=== PATIENT | male | born 1935 | race Hispanic/Latino ===

== ENCOUNTER 2017-10-29 13:47 | Emergency (ER) | payer OTHER, MEDICARE ==
[~2017-10-29 13:47] MED LIST: ACET-2160 PO; ATOR10 PO; AZIT500T4 PO; BISA10SU8 RC; FAMO20TA8 PO; FURO20TA4 PO; ISOS30TA6 PO; MEMA5TAB15 PO; METO25TA6 PO; OSEL75 PO; RISP0.5T19 PO; TAMS0.4C32 PO; TRAM50TA4 PO
[2017-10-29 14:38] LABS: APPEARANCE,URINE Clear (CLEAR); BILIRUBIN,URINE Negative (NEGATIVE); COLOR,URINE Yellow (YELLOW); GLUCOSE, URINE (UA) Negative (NEGATIVE); KETONES,URINE Negative (NEGATIVE); LEUKOCYTE ESTERASE ,URINE Small (NEGATIVE); NITRATE,URINE Negative (NEGATIVE); OCCULT BLOOD,URINE Negative (NEGATIVE); PROTEIN,URINE Negative (NEGATIVE)
[2017-10-29 14:53] LABS: BACTERIA,URINE Rare /HPF (None Seen); RBC,URINE 0-1 /HPF (0-1)
[2017-10-29 15:02] LABS: BASOPHILS % (AUTO) 0.4 % (0.0-5.0); EOSINOPHILS % (AUTO) 1.2 % (0.0-8.0); HEMATOCRIT 39.3 % (42-54); LYMPHOCYTES % (AUTO) 26.4 % (21.0-51.0); MEAN CORPUSCULAR HEMOGLOBIN 33.6 pg (27.0-33.0); MEAN CORPUSCULAR HGB CONC 34.8 g/dL (32.0-36.0); MEAN CORPUSCULAR VOLUME 96.8 fL (79-99); MONOCYTES % (AUTO) 6.8 % (3.0-13.0); NEUTROPHILS % (AUTO) 65.2 % (40.0-77.0); PLATELET COUNT (AUTO) 284 K/uL (130-400); RED BLOOD CELL COUNT(AUTO) 4.06 MIL/uL (4.50-6.20); RED CELL DISTRIBUTION WIDTH 13.3 % (11.0-15.5); WHITE BLOOD COUNT (AUTO) 8.3 K/uL (4.8-10.8)
[2017-10-29 15:16] LABS: POTASSIUM 3.8 mmol/L (3.5-5.1)
[2017-10-29 15:19] LABS: ALBUMIN 3.1 g/dL (3.5-5.0); BILIRUBIN,TOTAL 0.2 mg/dL (0.2-1.0); TOTAL PROTEIN, SERUM 6.7 g/dL (6.0-8.3)
[2017-10-29] MEDS ORDERED: IOPAMIDOL-370 75 ML VIAL IV ONE (16:02)
[2017-10-29] MEDS ORDERED: SODIUM CHLORIDE 0.9% 1000ML 1,000 ML IV ONE (16:03)
[2017-10-29] MEDS ORDERED: MORPHINE SULFATE 4 MG/1ML SYG ONE (16:03)
[2017-10-29] MEDS ORDERED: ONDANSETRON HCL 4 MG/2 ML VIAL ONE (16:03)
[2017-10-29] MEDS ORDERED: LEVOFLOXACIN 500 MG/D5W 100 ML 100 ML ONE (18:50)
== END 2017-10-29 19:35 | disposition home or self-care (01) ==
LOC: EDH 13:47
DX: N39.0 Urinary tract infection, site not specified (principal); R10.2 Pelvic and perineal pain; G30.9 Alzheimer's disease, unspecified; E11.9 Type 2 diabetes mellitus without complications; E78.5 Hyperlipidemia, unspecified; Z86.73 Personal history of transient ischemic attack (TIA), and cerebral infarction without residual deficits
CPT/HCPCS: 36415; 74177; 80053; 81001; 83690; 84484; 85025; 87088; 93005; 96361; 96365; 96375; 99285; J1956; J2270; J2405; J7030; Q9967

== ENCOUNTER 2017-11-12 19:48 | Observation (INO) | payer OTHER, MEDICARE ==
[~2017-11-12] VITALS: Ht 182.9 cm; Wt 83.3 kg
[2017-11-12 20:29] LABS: HEMATOCRIT 40.7 % (42-54); MEAN CORPUSCULAR HEMOGLOBIN 32.9 pg (27.0-33.0); MEAN CORPUSCULAR HGB CONC 34.2 g/dL (32.0-36.0); MEAN CORPUSCULAR VOLUME 96.2 fL (79-99); PLATELET COUNT (AUTO) 224 K/uL (130-400); RED BLOOD CELL COUNT(AUTO) 4.23 MIL/uL (4.50-6.20); RED CELL DISTRIBUTION WIDTH 13.7 % (11.0-15.5); WHITE BLOOD COUNT (AUTO) 11.7 K/uL (4.8-10.8)
[2017-11-12 20:37] LABS: CARBON DIOXIDE 25 mmol/L (21-32); CHLORIDE 105 mmol/L (101-111); CREATININE 1.2 mg/dL (0.5-1.5); GLOMERULAR FILTR. RATE CALC 61 mL/min (>60); GLUCOSE,RANDOM 125 mg/dL (70-105); POTASSIUM 3.7 mmol/L (3.5-5.1); SODIUM SERUM 140 mmol/L (136-145); UREA NITROGEN, BLOOD 19 mg/dL (7-18)
[2017-11-12 20:41] LABS: INR 1.04 (0.85-1.15); PARTIAL THROMBOPLASTIN TIME 27.3 SEC (26.3-35.5); PROTHROMBIN TIME 10.9 SEC (9.6-11.6)
[2017-11-12 20:51] LABS: ALANINE AMINOTRANSFERASE 32 U/L (12-78); ALBUMIN 3.2 g/dL (3.5-5.0); ASPARTATE AMINOTRANSFERASE 28 U/L (10-37); BILIRUBIN,TOTAL 0.5 mg/dL (0.2-1.0); CREATINE KINASE, TOTAL 170 U/L (21-232); MYOGLOBIN 341 ng/mL (10-92); TOTAL PROTEIN, SERUM 6.8 g/dL (6.0-8.3); TROPONIN I < 0.04 ng/mL (0.00-0.06)
[2017-11-12] MEDS ORDERED: ACETAMINOPHEN 325 MG TAB ONE (21:04)
[2017-11-12] MEDS ORDERED: LEVOFLOXACIN 750 MG/D5W 150 ML 150 ML ONE (21:39)
[2017-11-12 21:44] LABS: BAND NEUTROPHILS % (MANUAL) 7 % (0-2); BASOPHILS % (MANUAL) 1 % (0-2); LYMPHOCYTES % (MANUAL) 8 % (22-44); MONOCYTES % (MANUAL) 1 % (2-9); REACTIVE LYMPHOCYTES 1 % (0-0); SEGMENTED NEUTROPHILS % 82 % (40-70)
[2017-11-12 21:45] LABS: MAN.DIFF COMMENT-IMPRESSION MANUAL DIFFERENTIAL
[2017-11-12 21:52] LABS: APPEARANCE,URINE CLOUDY (CLEAR); BILIRUBIN,URINE NEGATIVE (NEGATIVE); COLOR,URINE YELLOW (YELLOW); GLUCOSE, URINE (UA) NEGATIVE (NEGATIVE); KETONES,URINE NEGATIVE (NEGATIVE); LEUKOCYTE ESTERASE ,URINE MODERATE (NEGATIVE); NITRATE,URINE POSITIVE (NEGATIVE); OCCULT BLOOD,URINE MODERATE (NEGATIVE); PROTEIN,URINE 30 (NEGATIVE)
[2017-11-12 21:58] LABS: BACTERIA,URINE Many /HPF (None Seen); WBC,URINE >100 /HPF (0-1)
[2017-11-13] MEDS ORDERED: SODIUM CHLORIDE 0.9% 1000ML 1,000 ML IV ONE (03:21)
[2017-11-13] MEDS ORDERED: LORAZEPAM 2 MG/ML 1 ML VIAL ONE (03:35)
[2017-11-13] MEDS ORDERED: ACETAMINOPHEN 325 MG TAB PO PRN (17:30)
[2017-11-13] MEDS ORDERED: TIOT4MIS3 IH (17:37)
[2017-11-13] MEDS ORDERED: TRAZ-144 PO (17:39)
[2017-11-13] MEDS ORDERED: METOPROLOL TARTRATE 25 MG TAB ONE (21:11)
[2017-11-13] MEDS ORDERED: FAMOTIDINE 20MG TAB 20 MG TAB ONE (21:12)
[2017-11-13] MEDS ORDERED: LEVOFLOXACIN 500 MG/D5W 100 ML 100 ML ONE (23:15)
[2017-11-14] VITALS (7 sets, daily range): BP systolic 96–138; BP diastolic 50–70
[2017-11-14] MEDS ORDERED: ACETAMINOPHEN 325 MG TAB PO PRN ×2 (00:30)
[2017-11-14] MEDS ORDERED: CLONIDINE HCL 0.1 MG TABLET PO PRN (00:30)
[2017-11-14] MEDS ORDERED: GLUCAGON 1MG KIT 1 MG ML IM PRN (00:30)
[2017-11-14] MEDS ORDERED: NITROGLYCERIN 0.4 MG SL TAB SL PRN (00:30)
[2017-11-14] MEDS ORDERED: POTASSIUM CHLORIDE 10% ELIXIR 20 MEQ/15 ML UDCUP PO PRN (00:30)
[2017-11-14] MEDS ORDERED: LACTULOSE 20 GM/30 ML UDCUP PO PRN (00:30)
[2017-11-14] MEDS ORDERED: IPRATROPIUM/ALBUTEROL SULFATE 3 ML SOLUTION IH PRN (00:30)
[2017-11-14] MEDS ORDERED: POTASSIUM CHLORIDE 20 MEQ ERTAB PO PRN (00:30)
[2017-11-14] MEDS ORDERED: SODIUM CHLORIDE 0.9% 10 ML VIAL IVP SCH (00:30)
[2017-11-14] MEDS ORDERED: GUAIFENESIN-DM 200/20 MG 10 ML PO PRN (00:30)
[2017-11-14] MEDS ORDERED: DEXTROSE 50%-WATER 50 ML DISP.SYRIN IV PRN (00:30)
[2017-11-14] MEDS: SODIUM CHLORIDE 0.9% 1000ML 1,000 ML IV SCH ×2 (00:45→14:13)
[2017-11-14] MEDS: METOPROLOL TARTRATE 25 MG TAB PO SCH ×3 (01:00→22:25)
[2017-11-14] MEDS: RISPERIDONE 0.5 MG TABLET PO SCH ×2 (01:00→22:25)
[2017-11-14] MEDS: ATORVASTATIN CALCIUM 10 MG TABLET PO SCH ×2 (01:00→22:25)
[2017-11-14] MEDS: FAMOTIDINE 20MG TAB 20 MG TAB PO SCH ×3 (01:00→22:25)
[2017-11-14] MEDS: LORAZEPAM 2 MG/ML 1 ML VIAL IVP PRN ×2 (01:38→22:51)
[2017-11-14] MEDS: CEFTRIAXONE SODIUM 1 GM IVP SCH (02:00)
[2017-11-14 04:28] LABS: HEMATOCRIT 37.1 % (42-54); MEAN CORPUSCULAR HEMOGLOBIN 33.5 pg (27.0-33.0); MEAN CORPUSCULAR VOLUME 95.7 fL (79-99); PLATELET COUNT (AUTO) 158 K/uL (130-400); RED BLOOD CELL COUNT(AUTO) 3.88 MIL/uL (4.50-6.20); RED CELL DISTRIBUTION WIDTH 14.1 % (11.0-15.5); WHITE BLOOD COUNT (AUTO) 14.1 K/uL (4.8-10.8)
[2017-11-14 04:31] LABS: CREATININE 1.1 mg/dL (0.5-1.5); POTASSIUM 3.2 mmol/L (3.5-5.1)
[2017-11-14 04:58] LABS: BAND NEUTROPHILS % (MANUAL) 10 % (0-2); LYMPHOCYTES % (MANUAL) 17 % (22-44); MAN.DIFF COMMENT-IMPRESSION MANUAL DIFFERENTIAL; PLATELET MORPHOLOGY COMMENT ADEQUATE; SEGMENTED NEUTROPHILS % 73 % (40-70)
[2017-11-14] MEDS: INSULIN R NPO SS1 SQ SCH ×3 (06:00→16:31)
[2017-11-14] MEDS: INSULIN R PO SSI SQ SCH ×4 (06:20→21:00)
[2017-11-14] MEDS: IPRATROPIUM/ALBUTEROL SULFATE 3 ML SOLUTION IH SCH ×3 (06:21→19:15)
[2017-11-14] MEDS: POTASSIUM CHLORIDE 20MEQ/100ML 100 ML IV PRN ×2 (06:58→14:16)
[2017-11-14] MEDS: TAMSULOSIN HCL 0.4 MG CAP.ER.24H PO SCH (12:05)
[2017-11-14] MEDS: FUROSEMIDE 20 MG TABLET PO SCH (12:05)
[2017-11-14] MEDS: MEMANTINE HCL 5 MG TABLET PO SCH (12:06)
[2017-11-14] MEDS: ISOSORBIDE MONO 30MG TAB SR PO SCH (12:06)
[2017-11-15 03:52] VITALS: BP 121/70
[2017-11-15] MEDS: SODIUM CHLORIDE 0.9% 1000ML 1,000 ML IV SCH (04:33)
[2017-11-15] MEDS: INSULIN R NPO SS1 SQ SCH ×3 (04:33→12:00)
[2017-11-15] MEDS: IPRATROPIUM/ALBUTEROL SULFATE 3 ML SOLUTION IH SCH ×3 (06:31→11:08)
[2017-11-15] MEDS: INSULIN R PO SSI SQ SCH ×2 (06:32→11:30)
[2017-11-15 07:00] VITALS: BP 152/70
[2017-11-15] MEDS ORDERED: ERTAPENEM SODIUM 1 GM/VIAL IV SCH (08:45)
[2017-11-15] MEDS ORDERED: ERTAPENEM SODIUM 0.5 GM in SODIUM CHLORIDE 0.9% 50 ML IV SCH (08:45)
[2017-11-15] MEDS ORDERED: MEROPENEM 500 MG VIAL IVP SCH (09:00)
[2017-11-15] MEDS: FUROSEMIDE 20 MG TABLET PO SCH (09:47)
[2017-11-15] MEDS: MEMANTINE HCL 5 MG TABLET PO SCH (09:47)
[2017-11-15] MEDS: METOPROLOL TARTRATE 25 MG TAB PO SCH (09:47)
[2017-11-15] MEDS: FAMOTIDINE 20MG TAB 20 MG TAB PO SCH (09:47)
[2017-11-15] MEDS: TAMSULOSIN HCL 0.4 MG CAP.ER.24H PO SCH (09:48)
[2017-11-15] MEDS: ISOSORBIDE MONO 30MG TAB SR PO SCH (09:48)
[2017-11-15 11:00] VITALS: BP 126/65
== END 2017-11-15 16:17 ==
LOC: EDH 19:48 → EDHIP 11-13 00:18 → INTOOBSV 11-13 00:18 → 2AH 11-13 23:53
PROVIDERS: ADMIT Family Medicine; ATTEND Family Medicine
DX: A41.9 Sepsis, unspecified organism (principal); R65.21 Severe sepsis with septic shock; N39.0 Urinary tract infection, site not specified; E86.0 Dehydration; G30.9 Alzheimer's disease, unspecified; I63.9 Cerebral infarction, unspecified; I10 Essential (primary) hypertension; E78.5 Hyperlipidemia, unspecified; E11.9 Type 2 diabetes mellitus without complications; N40.1 Benign prostatic hyperplasia with lower urinary tract symptoms; Z79.899 Other long term (current) drug therapy; F02.80 Dementia in other diseases classified elsewhere, unspecified severity, without behavioral disturbance, psychotic disturbance, mood disturbance, and anxiety; Z86.73 Personal history of transient ischemic attack (TIA), and cerebral infarction without residual deficits
CPT/HCPCS: 36415 ×2; 70450; 71045; 80048; 80053; 81001; 82550; 82553; 82948 ×7; 83605 ×2; 83874; 84484; 85025 ×2; 85610; 85730; 87040; 87088; 87186; 93005; 94640 ×6; 94664; 96361 ×2; 96374; 96375; 96376; 97161; 99291; A4218 ×2; G0378 ×64; G8978; G8979; G8981; G8982; J1956 ×2; J2060 ×3; J2185; J3480 ×2; J7030 ×2; J0696; J1335

== ENCOUNTER 2018-01-30 08:01 | Inpatient (IN) | payer OTHER, MEDICARE ==
[~2018-01-30] VITALS: Ht 182.9 cm; Wt 77.1 kg
[~2018-01-30 08:01] MED LIST changes: +TIOT4MIS3 IH; +TRAZ-185 PO
[2018-01-30] MEDS ORDERED: CEFTRIAXONE SODIUM 1 GM ONE (08:15)
[2018-01-30] MEDS ORDERED: SODIUM CHLORIDE 0.9% 1000ML 2,000 ML IV ONE (08:15)
[2018-01-30 08:18] LABS: BASOPHILS % (AUTO) 0.2 % (0.0-5.0); EOSINOPHILS % (AUTO) 0.1 % (0.0-8.0); HEMATOCRIT 40.9 % (42-54); MEAN CORPUSCULAR HEMOGLOBIN 33.2 pg (27.0-33.0); MEAN CORPUSCULAR HGB CONC 34.9 g/dL (32.0-36.0); MEAN CORPUSCULAR VOLUME 95.2 fL (79-99); MONOCYTES % (AUTO) 5.9 % (3.0-13.0); NEUTROPHILS % (AUTO) 87.8 % (40.0-77.0); PLATELET COUNT (AUTO) 199 K/uL (130-400); RED BLOOD CELL COUNT(AUTO) 4.29 MIL/uL (4.50-6.20); RED CELL DISTRIBUTION WIDTH 14.2 % (11.0-15.5); WHITE BLOOD COUNT (AUTO) 14.1 K/uL (4.8-10.8)
[2018-01-30 08:25] LABS: CARBON DIOXIDE 23 mmol/L (21-32); CHLORIDE 106 mmol/L (101-111); CREATININE 1.4 mg/dL (0.5-1.5); GLOMERULAR FILTR. RATE CALC 51 mL/min (>60); GLUCOSE,RANDOM 163 mg/dL (70-105); POTASSIUM 3.4 mmol/L (3.5-5.1); SODIUM SERUM 141 mmol/L (136-145); UREA NITROGEN, BLOOD 20 mg/dL (7-18)
[2018-01-30 08:32] LABS: INR 1.05 (0.85-1.15); PARTIAL THROMBOPLASTIN TIME 30.7 SEC (26.3-35.5)
[2018-01-30 08:46] LABS: APPEARANCE,URINE Turbid (CLEAR); BILIRUBIN,URINE Negative (NEGATIVE); COLOR,URINE Yellow (YELLOW); GLUCOSE, URINE (UA) Negative (NEGATIVE); KETONES,URINE Negative (NEGATIVE); LEUKOCYTE ESTERASE ,URINE Large (NEGATIVE); NITRATE,URINE Positive (NEGATIVE); OCCULT BLOOD,URINE Large (NEGATIVE); PROTEIN,URINE POS 2+ (NEGATIVE); UROBILINOGEN,URINE 0.2 mg/dL (0.2-1.0)
[2018-01-30 08:52] LABS: ALANINE AMINOTRANSFERASE 18 U/L (12-78); ALBUMIN 3.7 g/dL (3.5-5.0); ASPARTATE AMINOTRANSFERASE 24 U/L (10-37); BILIRUBIN,TOTAL 1.2 mg/dL (0.2-1.0); CREATINE KINASE MB 6.6 ng/mL (0.5-3.6); MYOGLOBIN 1926 ng/mL (10-92); TOTAL PROTEIN, SERUM 7.7 g/dL (6.0-8.3); TROPONIN I < 0.04 ng/mL (0.00-0.06)
[2018-01-30 08:56] LABS: CREATINE KINASE, TOTAL 677 U/L (21-232)
[2018-01-30 09:12] LABS: BACTERIA,URINE Rare /HPF (None Seen); RBC,URINE 0-1 /HPF (0-1); WBC,URINE TNTC /HPF (0-1)
[2018-01-30 09:14] LABS: RENAL EPITHELIAL CELLS,URINE Few /HPF (None Seen)
[2018-01-30] MEDS ORDERED: POTASSIUM BICARB/CIT AC 25 MEQ TABLET.EFF ONE (09:20)
[2018-01-30] MEDS ORDERED: SODIUM CHLORIDE 0.9% 500ML 500 ML IV ONE (10:17)
[2018-01-30] MEDS ORDERED: LACTULOSE 20 GM/30 ML UDCUP PO PRN (10:45)
[2018-01-30] MEDS ORDERED: MAG HYDROX/AL HYDROX/SIMETH ES 30 ML SUSP UDCUP PO PRN (10:45)
[2018-01-30] MEDS ORDERED: ONDANSETRON HCL 4 MG/2 ML VIAL IV PRN (10:45)
[2018-01-30] MEDS ORDERED: ACETAMINOPHEN 325 MG TAB PO PRN (10:45)
[2018-01-30] MEDS ORDERED: MORPHINE SULFATE 2 MG/ML 1ML SYG IV PRN (10:45)
[2018-01-30] MEDS ORDERED: HYDRALAZINE HCL 20 MG/ML VIAL IV PRN (10:45)
[2018-01-30] MEDS ORDERED: LIDOCAINE HCL-MPF 1% 2ML VIAL IVP PRN (10:45)
[2018-01-30] MEDS ORDERED: MORPHINE SULFATE 4 MG/1ML SYG IV PRN (10:45)
[2018-01-30] MEDS ORDERED: POTASSIUM CHLORIDE 20 MEQ ERTAB PO PRN (10:45)
[2018-01-30] MEDS ORDERED: NITROGLYCERIN 0.4 MG SL TAB SL PRN (10:45)
[2018-01-30] MEDS ORDERED: POTASSIUM CHLORIDE 20MEQ/100ML 100 ML IV PRN (10:45)
[2018-01-30] MEDS ORDERED: MAGNESIUM 2GM PREMIX 50ML 50 ML IV SCH (10:45)
[2018-01-30] MEDS ORDERED: MEROPENEM 500MG+NS 50ML 50 ML IV SCH (10:45)
[2018-01-30] MEDS ORDERED: ACETAMINOPHEN-CODEINE 300/30MG TAB PO PRN ×2 (10:45)
[2018-01-30 11:30] VITALS: BP 117/62
[2018-01-30] MEDS: INSULIN HUMULIN R 100 UNIT/ML 3ML SQ SCH ×3 (11:30→20:50)
[2018-01-30] MEDS: SODIUM CHLORIDE 0.9% 1000ML 1,000 ML IV SCH (12:47)
[2018-01-30] MEDS: MEROPENEM 500 MG VIAL IVP SCH ×2 (12:47→20:42)
[2018-01-30] MEDS ORDERED: DONE5TAB33 PO (13:23)
[2018-01-30] MEDS ORDERED: RISP1TAB89 PO (13:23)
[2018-01-30] MEDS ORDERED: BISA5TAB12 PO (13:23)
[2018-01-30] MEDS: GUAIFENESIN-DM 200/20 MG 10 ML PO PRN (13:28)
[2018-01-30] MEDS ORDERED: BISACODYL 5 MG TABLET.DR PO PRN (13:30)
[2018-01-30] MEDS: HALOPERIDOL LACTATE 5 MG/ML VIAL IV PRN (13:32)
[2018-01-30 15:55] VITALS: BP 176/67
[2018-01-30] MEDS: ACETAMINOPHEN 325 MG TAB PO PRN (16:07)
[2018-01-30] MEDS: DONEPEZIL HCL 5 MG TAB PO SCH (16:07)
[2018-01-30 19:17] VITALS: BP 155/77
[2018-01-30] MEDS: RISPERIDONE 1 MG TABLET PO SCH (20:45)
[2018-01-30] MEDS: METOPROLOL TARTRATE 25 MG TAB PO SCH (20:45)
[2018-01-30] MEDS: FAMOTIDINE 20MG TAB 20 MG TAB PO SCH (20:45)
[2018-01-30 23:05] VITALS: BP 145/73
[2018-01-31] MEDS: SODIUM CHLORIDE 0.9% 1000ML 1,000 ML IV SCH ×3 (01:33→23:16)
[2018-01-31] MEDS: HALOPERIDOL LACTATE 5 MG/ML VIAL IV PRN (02:10)
[2018-01-31] MEDS: MEROPENEM 500 MG VIAL IVP SCH ×3 (03:06→21:11)
[2018-01-31 04:00] VITALS: BP 142/76
[2018-01-31 04:33] LABS: HEMATOCRIT 37.2 % (42-54); MEAN CORPUSCULAR HEMOGLOBIN 33.6 pg (27.0-33.0); MEAN CORPUSCULAR HGB CONC 34.9 g/dL (32.0-36.0); MEAN CORPUSCULAR VOLUME 96.2 fL (79-99); PLATELET COUNT (AUTO) 187 K/uL (130-400); RED BLOOD CELL COUNT(AUTO) 3.87 MIL/uL (4.50-6.20); RED CELL DISTRIBUTION WIDTH 14.4 % (11.0-15.5)
[2018-01-31 05:15] LABS: CREATININE 1.3 mg/dL (0.5-1.5); POTASSIUM 3.6 mmol/L (3.5-5.1)
[2018-01-31] MEDS: INSULIN HUMULIN R 100 UNIT/ML 3ML SQ SCH ×4 (06:59→21:00)
[2018-01-31 07:00] VITALS: BP 150/74
[2018-01-31] MEDS: OLODATEROL IH SCH (09:00)
[2018-01-31] MEDS: TIOTROPIUM IH SCH (09:00)
[2018-01-31] MEDS: ACETAMINOPHEN 325 MG TAB PO PRN ×2 (09:34→17:00)
[2018-01-31] MEDS: MEMANTINE HCL 5 MG TABLET PO SCH (09:34)
[2018-01-31] MEDS: ISOSORBIDE MONO 30MG TAB SR PO SCH (09:34)
[2018-01-31] MEDS: FAMOTIDINE 20MG TAB 20 MG TAB PO SCH ×2 (09:34→21:11)
[2018-01-31] MEDS: TAMSULOSIN HCL 0.4 MG CAP.ER.24H PO SCH (09:35)
[2018-01-31] MEDS: METOPROLOL TARTRATE 25 MG TAB PO SCH (09:35)
[2018-01-31] MEDS: RISPERIDONE 1 MG TABLET PO SCH ×2 (09:35→21:11)
[2018-01-31] MEDS: ENOXAPARIN SODIUM 30 MG/0.3 ML SQ SCH (09:36)
[2018-01-31 11:00] VITALS: BP 97/55
[2018-01-31 13:05] VITALS: BP 112/53
[2018-01-31 15:24] VITALS: BP 140/71
[2018-01-31] MEDS: DONEPEZIL HCL 5 MG TAB PO SCH (17:00)
[2018-01-31 19:07] VITALS: BP 99/57
[2018-02-01] VITALS: BP 135/70
[2018-02-01] MEDS: METOPROLOL TARTRATE 25 MG TAB PO SCH ×3 (00:46→21:35)
[2018-02-01 04:00] VITALS: BP 142/65
[2018-02-01] MEDS: MEROPENEM 500 MG VIAL IVP SCH ×3 (04:14→17:38)
[2018-02-01] MEDS: ACETAMINOPHEN 325 MG TAB PO PRN (05:03)
[2018-02-01 05:39] LABS: HEMATOCRIT 35.6 % (42-54); MEAN CORPUSCULAR HEMOGLOBIN 33.6 pg (27.0-33.0); MEAN CORPUSCULAR HGB CONC 35.1 g/dL (32.0-36.0); MEAN CORPUSCULAR VOLUME 95.6 fL (79-99); PLATELET COUNT (AUTO) 185 K/uL (130-400); RED BLOOD CELL COUNT(AUTO) 3.72 MIL/uL (4.50-6.20); RED CELL DISTRIBUTION WIDTH 14.4 % (11.0-15.5); WHITE BLOOD COUNT (AUTO) 9.3 K/uL (4.8-10.8)
[2018-02-01 06:10] LABS: CREATININE 1.2 mg/dL (0.5-1.5); POTASSIUM 3.5 mmol/L (3.5-5.1)
[2018-02-01] MEDS: INSULIN HUMULIN R 100 UNIT/ML 3ML SQ SCH ×4 (06:25→21:00)
[2018-02-01 07:55] VITALS: BP 132/55
[2018-02-01] MEDS: TIOTROPIUM IH SCH (09:00)
[2018-02-01] MEDS: OLODATEROL IH SCH (09:00)
[2018-02-01] MEDS: ISOSORBIDE MONO 30MG TAB SR PO SCH (09:21)
[2018-02-01] MEDS: MEMANTINE HCL 5 MG TABLET PO SCH (09:21)
[2018-02-01] MEDS: TAMSULOSIN HCL 0.4 MG CAP.ER.24H PO SCH (09:21)
[2018-02-01] MEDS: FAMOTIDINE 20MG TAB 20 MG TAB PO SCH ×2 (09:22→21:35)
[2018-02-01] MEDS: RISPERIDONE 1 MG TABLET PO SCH ×2 (09:22→21:34)
[2018-02-01] MEDS: ENOXAPARIN SODIUM 30 MG/0.3 ML SQ SCH (09:22)
[2018-02-01] MEDS: POTASSIUM CHLORIDE 10% ELIXIR 20 MEQ/15 ML UDCUP PO PRN (09:23)
[2018-02-01] MEDS: GUAIFENESIN-DM 200/20 MG 10 ML PO PRN (11:15)
[2018-02-01 12:56] VITALS: BP 96/57
[2018-02-01 16:00] VITALS: BP 141/74
[2018-02-01] MEDS: DONEPEZIL HCL 5 MG TAB PO SCH (17:00)
[2018-02-01 19:45] VITALS: BP 147/70
[2018-02-02] VITALS (7 sets, daily range): BP systolic 115–144; BP diastolic 57–91
[2018-02-02] MEDS: ACETAMINOPHEN 325 MG TAB PO PRN (00:03)
[2018-02-02] MEDS: MEROPENEM 500 MG VIAL IVP SCH ×3 (03:41→18:43)
[2018-02-02] MEDS: INSULIN HUMULIN R 100 UNIT/ML 3ML SQ SCH ×4 (06:34→21:00)
[2018-02-02] MEDS: POTASSIUM CHLORIDE 10% ELIXIR 20 MEQ/15 ML UDCUP PO PRN ×2 (07:02→17:05)
[2018-02-02] MEDS: OLODATEROL IH SCH (09:00)
[2018-02-02] MEDS: TIOTROPIUM IH SCH (09:00)
[2018-02-02] MEDS: TAMSULOSIN HCL 0.4 MG CAP.ER.24H PO SCH (12:07)
[2018-02-02] MEDS: ENOXAPARIN SODIUM 30 MG/0.3 ML SQ SCH (12:08)
[2018-02-02] MEDS: MEMANTINE HCL 5 MG TABLET PO SCH (12:08)
[2018-02-02] MEDS: METOPROLOL TARTRATE 25 MG TAB PO SCH ×2 (12:08→21:19)
[2018-02-02] MEDS: RISPERIDONE 1 MG TABLET PO SCH ×2 (12:08→21:19)
[2018-02-02] MEDS: FAMOTIDINE 20MG TAB 20 MG TAB PO SCH ×2 (12:08→21:19)
[2018-02-02] MEDS: ISOSORBIDE MONO 30MG TAB SR PO SCH (12:08)
[2018-02-02] MEDS: DOXYCYCLINE 100MG+NS 250ML 250 ML IV SCH ×2 (12:09→21:17)
[2018-02-02] MEDS: DONEPEZIL HCL 5 MG TAB PO SCH (17:04)
[2018-02-03 04:00] VITALS: BP 112/68
[2018-02-03 05:28] LABS: HEMATOCRIT 38.6 % (42-54); MEAN CORPUSCULAR HEMOGLOBIN 33.3 pg (27.0-33.0); MEAN CORPUSCULAR HGB CONC 34.7 g/dL (32.0-36.0); MEAN CORPUSCULAR VOLUME 95.9 fL (79-99); PLATELET COUNT (AUTO) 225 K/uL (130-400); RED BLOOD CELL COUNT(AUTO) 4.02 MIL/uL (4.50-6.20); RED CELL DISTRIBUTION WIDTH 14.4 % (11.0-15.5); WHITE BLOOD COUNT (AUTO) 6.2 K/uL (4.8-10.8)
[2018-02-03 05:34] LABS: POTASSIUM 3.8 mmol/L (3.5-5.1)
[2018-02-03] MEDS: MEROPENEM 500 MG VIAL IVP SCH ×3 (06:03→18:10)
[2018-02-03 07:20] VITALS: BP 159/67
[2018-02-03] MEDS: INSULIN HUMULIN R 100 UNIT/ML 3ML SQ SCH ×4 (07:30→21:00)
[2018-02-03] MEDS: ENOXAPARIN SODIUM 30 MG/0.3 ML SQ SCH (08:43)
[2018-02-03] MEDS: ISOSORBIDE MONO 30MG TAB SR PO SCH (08:43)
[2018-02-03] MEDS: RISPERIDONE 1 MG TABLET PO SCH ×2 (08:43→20:42)
[2018-02-03] MEDS: FAMOTIDINE 20MG TAB 20 MG TAB PO SCH ×2 (08:43→20:43)
[2018-02-03] MEDS: TAMSULOSIN HCL 0.4 MG CAP.ER.24H PO SCH (08:43)
[2018-02-03] MEDS: METOPROLOL TARTRATE 25 MG TAB PO SCH ×2 (08:43→20:42)
[2018-02-03] MEDS: MEMANTINE HCL 5 MG TABLET PO SCH (08:43)
[2018-02-03] MEDS: OLODATEROL IH SCH (08:47)
[2018-02-03] MEDS: TIOTROPIUM IH SCH (08:47)
[2018-02-03] MEDS: DOXYCYCLINE 100MG+NS 250ML 250 ML IV SCH ×2 (10:02→20:43)
[2018-02-03 11:39] VITALS: BP 98/58
[2018-02-03] MEDS ORDERED: HALOPERIDOL LACTATE 5 MG/ML VIAL IV PRN (13:15)
[2018-02-03 16:46] VITALS: BP 136/76
[2018-02-03] MEDS: DONEPEZIL HCL 5 MG TAB PO SCH (17:59)
[2018-02-03 20:00] VITALS: BP 157/77
[2018-02-03 23:58] VITALS: BP 149/85
[2018-02-04] MEDS: MEROPENEM 500 MG VIAL IVP SCH (02:33)
[2018-02-04 04:00] VITALS: BP 143/77
[2018-02-04] MEDS: INSULIN HUMULIN R 100 UNIT/ML 3ML SQ SCH ×3 (07:30→16:30)
[2018-02-04 08:59] VITALS: BP 160/71
[2018-02-04] MEDS: TIOTROPIUM IH SCH (09:00)
[2018-02-04] MEDS: OLODATEROL IH SCH (09:00)
[2018-02-04] MEDS: MEMANTINE HCL 5 MG TABLET PO SCH (09:35)
[2018-02-04] MEDS: METOPROLOL TARTRATE 25 MG TAB PO SCH (09:35)
[2018-02-04] MEDS: DOXYCYCLINE 100MG+NS 250ML 250 ML IV SCH (09:35)
[2018-02-04] MEDS: TAMSULOSIN HCL 0.4 MG CAP.ER.24H PO SCH (09:36)
[2018-02-04] MEDS: RISPERIDONE 1 MG TABLET PO SCH (09:36)
[2018-02-04] MEDS: FAMOTIDINE 20MG TAB 20 MG TAB PO SCH (09:36)
[2018-02-04] MEDS: ISOSORBIDE MONO 30MG TAB SR PO SCH (09:38)
[2018-02-04] MEDS: ENOXAPARIN SODIUM 30 MG/0.3 ML SQ SCH (09:40)
[2018-02-04] MEDS ORDERED: MEROPENEM 1GM IVPB PREMIXED 1 GM IV SCH (10:45)
[2018-02-04] MEDS ORDERED: MEROPENEM 1 GM VIAL IVP SCH (11:00)
[2018-02-04 12:00] VITALS: BP 116/68
[2018-02-04 16:00] VITALS: BP 106/65
[2018-02-04] MEDS: DONEPEZIL HCL 5 MG TAB PO SCH (16:44)
== END 2018-02-04 19:10 | DRG 872 ==
LOC: EDH 08:01 → EDHIP 09:15 → OBSVTOIN 09:15 → 4CH 10:18 → 4BH 16:42 → 4AH 02-01 14:15 → 4BH 02-04 09:30
PROVIDERS: ADMIT Internal Medicine; ATTEND Internal Medicine
DX: A41.51 Sepsis due to Escherichia coli [E. coli] (principal); M62.82 Rhabdomyolysis; E11.9 Type 2 diabetes mellitus without complications; N39.0 Urinary tract infection, site not specified; E66.9 Obesity, unspecified; E78.5 Hyperlipidemia, unspecified; G30.9 Alzheimer's disease, unspecified; F02.80 Dementia in other diseases classified elsewhere, unspecified severity, without behavioral disturbance, psychotic disturbance, mood disturbance, and anxiety; N40.0 Benign prostatic hyperplasia without lower urinary tract symptoms; Z16.24 Resistance to multiple antibiotics; Z16.12 Extended spectrum beta lactamase (ESBL) resistance; I10 Essential (primary) hypertension; M19.90 Unspecified osteoarthritis, unspecified site; I25.10 Atherosclerotic heart disease of native coronary artery without angina pectoris; Z95.1 Presence of aortocoronary bypass graft; Z86.73 Personal history of transient ischemic attack (TIA), and cerebral infarction without residual deficits; Z87.440 Personal history of urinary (tract) infections; Z83.3 Family history of diabetes mellitus; Z90.49 Acquired absence of other specified parts of digestive tract; Z88.0 Allergy status to penicillin; Z79.899 Other long term (current) drug therapy; Z68.23 Body mass index [BMI] 23.0-23.9, adult
CPT/HCPCS: 36415; 71045; 80048; 80053; 81001; 82550; 82553; 82948; 83605; 83735; 83874; 84132; 84484; 85025; 85027; 85610; 85730; 87040; 87088; 87186; 92610; 93005; A4218; J0696; J1630; J1650; J2185; J3475; J3490; J7030; J7040

== ENCOUNTER 2018-07-02 08:25 | Inpatient (IN) | payer OTHER, MEDICARE ==
[~2018-07-02] VITALS: Ht 182.9 cm; Wt 78.3 kg
[~2018-07-02 08:25] MED LIST changes: -AZIT500T4 PO; -BISA10SU8 RC; +DONE5TAB33 PO; -OSEL75 PO; -RISP0.5T19 PO; +RISP1TAB89 PO; -TIOT4MIS3 IH; -TRAM50TA4 PO; -TRAZ-185 PO
[2018-07-02] MEDS ORDERED: SODIUM CHLORIDE 0.9% 1000ML 1,000 ML IV ONE (08:40)
[2018-07-02] MEDS ORDERED: CEFTRIAXONE SODIUM 1 GM ONE (08:53)
[2018-07-02] MEDS ORDERED: SODIUM CHLORIDE 0.9% 50 ML IV ONE (08:54)
[2018-07-02 08:58] LABS: BASOPHILS % (AUTO) 0.4 % (0.0-5.0); EOSINOPHILS % (AUTO) 0.2 % (0.0-8.0); HEMATOCRIT 39.4 % (42-54); LYMPHOCYTES % (AUTO) 7.6 % (21.0-51.0); MEAN CORPUSCULAR HEMOGLOBIN 33.8 pg (27.0-33.0); MEAN CORPUSCULAR HGB CONC 34.5 g/dL (32.0-36.0); MONOCYTES % (AUTO) 7.4 % (3.0-13.0); NEUTROPHILS % (AUTO) 84.4 % (40.0-77.0); PLATELET COUNT (AUTO) 203 K/uL (130-400); RED BLOOD CELL COUNT(AUTO) 4.02 MIL/uL (4.50-6.20); RED CELL DISTRIBUTION WIDTH 13.7 % (11.0-15.5); WHITE BLOOD COUNT (AUTO) 11.1 K/uL (4.8-10.8)
[2018-07-02 09:01] LABS: CREATININE 1.2 mg/dL (0.5-1.5); POTASSIUM 3.4 mmol/L (3.5-5.1)
[2018-07-02 09:06] LABS: ALBUMIN 3.5 g/dL (3.5-5.0); BILIRUBIN,TOTAL 0.7 mg/dL (0.2-1.0); TOTAL PROTEIN, SERUM 7.6 g/dL (6.0-8.3)
[2018-07-02 09:24] LABS: INR 0.99 (0.85-1.15); PARTIAL THROMBOPLASTIN TIME 29.9 SEC (26.3-35.5); PROTHROMBIN TIME 10.4 SEC (9.6-11.6)
[2018-07-02 11:14] LABS: APPEARANCE,URINE TURBID (CLEAR); BILIRUBIN,URINE NEGATIVE (NEGATIVE); COLOR,URINE YELLOW (YELLOW); GLUCOSE, URINE (UA) NEGATIVE (NEGATIVE); KETONES,URINE NEGATIVE (NEGATIVE); LEUKOCYTE ESTERASE ,URINE MODERATE (NEGATIVE); NITRATE,URINE POSITIVE (NEGATIVE); OCCULT BLOOD,URINE LARGE (NEGATIVE); PROTEIN,URINE 100 (NEGATIVE); UROBILINOGEN,URINE 0.2 mg/dL (0.2-1.0)
[2018-07-02 11:33] LABS: BACTERIA,URINE Many /HPF (None Seen); SQUAMOUS EPITHELIAL CELL,UR Rare /HPF (0-2); WBC,URINE >100 /HPF (0-1)
[2018-07-02] MEDS ORDERED: LORAZEPAM 2 MG/ML 1 ML VIAL ONE (11:57)
[2018-07-02] MEDS ORDERED: HYDRALAZINE HCL 20 MG/ML VIAL IV PRN (12:00)
[2018-07-02 13:05] VITALS: BP 143/78
[2018-07-02] MEDS: SODIUM CHLORIDE 0.9% 1000ML 1,000 ML IV SCH ×2 (13:11→20:10)
[2018-07-02 16:00] VITALS: BP 147/68
[2018-07-02] MEDS: MEROPENEM 1 GM VIAL IVP SCH ×2 (17:42→23:16)
[2018-07-02] MEDS: IPRATROPIUM/ALBUTEROL SULFATE 3 ML SOLUTION IH SCH ×2 (18:37→23:37)
[2018-07-02 19:30] VITALS: BP 130/71
[2018-07-02] MEDS: DONEPEZIL HCL 5 MG TAB PO SCH (20:10)
[2018-07-02] MEDS: RISPERIDONE 1 MG TABLET PO SCH (20:10)
[2018-07-02] MEDS: ATORVASTATIN CALCIUM 10 MG TABLET PO SCH (20:10)
[2018-07-02] MEDS: MEMANTINE HCL 5 MG TABLET PO SCH (20:10)
[2018-07-03] VITALS: BP 140/74
[2018-07-03 04:30] VITALS: BP 147/70
[2018-07-03 05:52] LABS: BASOPHILS % (AUTO) 0.3 % (0.0-5.0); EOSINOPHILS % (AUTO) 0.2 % (0.0-8.0); LYMPHOCYTES % (AUTO) 16.9 % (21.0-51.0); MEAN CORPUSCULAR HEMOGLOBIN 34.5 pg (27.0-33.0); MEAN CORPUSCULAR VOLUME 98.5 fL (79-99); MONOCYTES % (AUTO) 9.7 % (3.0-13.0); NEUTROPHILS % (AUTO) 72.9 % (40.0-77.0); PLATELET COUNT (AUTO) 199 K/uL (130-400); RED BLOOD CELL COUNT(AUTO) 3.76 MIL/uL (4.50-6.20); RED CELL DISTRIBUTION WIDTH 13.4 % (11.0-15.5); WHITE BLOOD COUNT (AUTO) 9.6 K/uL (4.8-10.8)
[2018-07-03 06:07] LABS: HEMOGLOBIN A1C 5.9 % (4.0-6.0)
[2018-07-03 06:12] LABS: INR 1.06 (0.85-1.15); PARTIAL THROMBOPLASTIN TIME 36.8 SEC (26.3-35.5); PROTHROMBIN TIME 11.1 SEC (9.6-11.6)
[2018-07-03 06:22] LABS: ALBUMIN 2.9 g/dL (3.5-5.0); BILIRUBIN,TOTAL 0.8 mg/dL (0.2-1.0); CREATININE 1.1 mg/dL (0.5-1.5); MAGNESIUM 1.6 mg/dL (1.80-2.40); PHOSPHORUS 2.5 mg/dL (2.5-4.9); POTASSIUM 3.4 mmol/L (3.5-5.1); TOTAL PROTEIN, SERUM 6.8 g/dL (6.0-8.3)
[2018-07-03] MEDS: MEROPENEM 1 GM VIAL IVP SCH ×3 (06:28→23:03)
[2018-07-03] MEDS: IPRATROPIUM/ALBUTEROL SULFATE 3 ML SOLUTION IH SCH ×4 (06:35→23:17)
[2018-07-03 07:30] VITALS: BP 94/48
[2018-07-03] MEDS ORDERED: POTASSIUM CHLORIDE 20MEQ/100ML 100 ML IV PRN ×2 (08:15→12:45)
[2018-07-03] MEDS ORDERED: LIDOCAINE HCL-MPF 1% 2ML VIAL IVP PRN ×2 (08:15→12:45)
[2018-07-03] MEDS: ISOSORBIDE MONO 30MG TAB SR PO SCH (08:52)
[2018-07-03] MEDS: TAMSULOSIN HCL 0.4 MG CAP.ER.24H PO SCH (08:52)
[2018-07-03] MEDS: MEMANTINE HCL 5 MG TABLET PO SCH ×2 (08:52→20:32)
[2018-07-03] MEDS: SODIUM CHLORIDE 0.9% 1000ML 1,000 ML IV SCH ×3 (08:53→16:12)
[2018-07-03] MEDS ORDERED: CEFTRIAXONE SODIUM 1 GM IVP SCH (09:00)
[2018-07-03 11:00] VITALS: BP 101/51
[2018-07-03] MEDS: INSULIN LISPRO 100 UNIT/ML 3ML SQ SCH ×3 (11:30→20:33)
[2018-07-03] MEDS: POTASSIUM CHLORIDE 20 MEQ ERTAB PO PRN ×2 (12:53→16:11)
[2018-07-03] MEDS: MAGNESIUM 2GM PREMIX 50ML 50 ML IV SCH (12:54)
[2018-07-03] MEDS: ENOXAPARIN SODIUM 40 MG/0.4 ML SYRINGE SQ SCH (12:55)
[2018-07-03 16:00] VITALS: BP 139/62
[2018-07-03] MEDS: RISPERIDONE 1 MG TABLET PO SCH (20:32)
[2018-07-03] MEDS: DONEPEZIL HCL 5 MG TAB PO SCH (20:32)
[2018-07-03] MEDS: ATORVASTATIN CALCIUM 10 MG TABLET PO SCH (20:32)
[2018-07-04] VITALS (7 sets, daily range): BP systolic 94–130; BP diastolic 50–64
[2018-07-04] MEDS: SODIUM CHLORIDE 0.9% 1000ML 1,000 ML IV SCH ×2 (03:27→17:13)
[2018-07-04 04:59] LABS: HEMATOCRIT 35.8 % (42-54); MEAN CORPUSCULAR HGB CONC 34.6 g/dL (32.0-36.0); MEAN CORPUSCULAR VOLUME 98.3 fL (79-99); PLATELET COUNT (AUTO) 196 K/uL (130-400); RED BLOOD CELL COUNT(AUTO) 3.65 MIL/uL (4.50-6.20); RED CELL DISTRIBUTION WIDTH 13.4 % (11.0-15.5); WHITE BLOOD COUNT (AUTO) 6.7 K/uL (4.8-10.8)
[2018-07-04 05:00] LABS: CREATININE 0.9 mg/dL (0.5-1.5); MAGNESIUM 1.8 mg/dL (1.80-2.40); POTASSIUM 3.5 mmol/L (3.5-5.1)
[2018-07-04] MEDS: IPRATROPIUM/ALBUTEROL SULFATE 3 ML SOLUTION IH SCH ×4 (06:16→23:04)
[2018-07-04] MEDS: MEROPENEM 1 GM VIAL IVP SCH ×2 (06:31→17:05)
[2018-07-04] MEDS: INSULIN LISPRO 100 UNIT/ML 3ML SQ SCH ×4 (06:32→21:00)
[2018-07-04] MEDS: MEMANTINE HCL 5 MG TABLET PO SCH ×2 (09:24→21:17)
[2018-07-04] MEDS: TAMSULOSIN HCL 0.4 MG CAP.ER.24H PO SCH (09:25)
[2018-07-04] MEDS: ISOSORBIDE MONO 30MG TAB SR PO SCH (09:25)
[2018-07-04] MEDS: ENOXAPARIN SODIUM 40 MG/0.4 ML SYRINGE SQ SCH (09:26)
[2018-07-04] MEDS ORDERED: ERTA1I IM (14:23)
[2018-07-04] MEDS: MAGNESIUM 2GM PREMIX 50ML 50 ML IV SCH (21:15)
[2018-07-04] MEDS: DONEPEZIL HCL 5 MG TAB PO SCH (21:16)
[2018-07-04] MEDS: POTASSIUM CHLORIDE 10% ELIXIR 20 MEQ/15 ML UDCUP PO PRN ×2 (21:16→22:53)
[2018-07-04] MEDS: RISPERIDONE 1 MG TABLET PO SCH (21:17)
[2018-07-04] MEDS: ATORVASTATIN CALCIUM 10 MG TABLET PO SCH (21:17)
[2018-07-05] MEDS: MEROPENEM 1 GM VIAL IVP SCH ×4 (02:23→22:08)
[2018-07-05] MEDS: SODIUM CHLORIDE 0.9% 1000ML 1,000 ML IV SCH ×2 (02:59→20:00)
[2018-07-05 03:59] VITALS: BP 120/74
[2018-07-05] MEDS: IPRATROPIUM/ALBUTEROL SULFATE 3 ML SOLUTION IH SCH ×4 (06:10→23:13)
[2018-07-05] MEDS: INSULIN LISPRO 100 UNIT/ML 3ML SQ SCH ×4 (07:07→20:44)
[2018-07-05 08:08] VITALS: BP 132/78
[2018-07-05] MEDS: ENOXAPARIN SODIUM 40 MG/0.4 ML SYRINGE SQ SCH (10:10)
[2018-07-05] MEDS: TAMSULOSIN HCL 0.4 MG CAP.ER.24H PO SCH (10:16)
[2018-07-05] MEDS: MEMANTINE HCL 5 MG TABLET PO SCH ×2 (10:16→20:43)
[2018-07-05] MEDS: ISOSORBIDE MONO 30MG TAB SR PO SCH (10:17)
[2018-07-05 12:22] VITALS: BP 109/73
[2018-07-05 16:02] VITALS: BP 132/75
[2018-07-05] MEDS ORDERED: ACETAMINOPHEN 325 MG TAB PO PRN (17:15)
[2018-07-05] MEDS ORDERED: ACETAMINOPHEN 325 MG TAB ONE (17:33)
[2018-07-05 19:56] VITALS: BP 98/54
[2018-07-05] MEDS: POTASSIUM CHLORIDE 10% ELIXIR 20 MEQ/15 ML UDCUP PO PRN (20:43)
[2018-07-05] MEDS: DONEPEZIL HCL 5 MG TAB PO SCH (20:43)
[2018-07-05] MEDS: ATORVASTATIN CALCIUM 10 MG TABLET PO SCH (20:43)
[2018-07-05] MEDS: RISPERIDONE 1 MG TABLET PO SCH (20:43)
[2018-07-05 23:43] VITALS: BP 137/70
[2018-07-06 03:20] VITALS: BP 135/72
[2018-07-06 05:10] LABS: HEMATOCRIT 36.5 % (42-54); MEAN CORPUSCULAR HGB CONC 34.8 g/dL (32.0-36.0); MEAN CORPUSCULAR VOLUME 97.7 fL (79-99); NUCLEATED RED BLOOD CELLS 0.1 % (0.0-0.19); PLATELET COUNT (AUTO) 234 K/uL (130-400); RED BLOOD CELL COUNT(AUTO) 3.73 MIL/uL (4.50-6.20); RED CELL DISTRIBUTION WIDTH 13.1 % (11.0-15.5); WHITE BLOOD COUNT (AUTO) 5.9 K/uL (4.8-10.8)
[2018-07-06] MEDS: INSULIN LISPRO 100 UNIT/ML 3ML SQ SCH ×4 (05:15→20:32)
[2018-07-06 05:26] LABS: CREATININE 0.9 mg/dL (0.5-1.5); POTASSIUM 3.8 mmol/L (3.5-5.1)
[2018-07-06] MEDS: MEROPENEM 1 GM VIAL IVP SCH ×3 (05:56→22:29)
[2018-07-06] MEDS: IPRATROPIUM/ALBUTEROL SULFATE 3 ML SOLUTION IH SCH ×4 (06:19→23:54)
[2018-07-06 07:30] VITALS: BP 121/73
[2018-07-06] MEDS: ENOXAPARIN SODIUM 40 MG/0.4 ML SYRINGE SQ SCH (09:25)
[2018-07-06] MEDS: ISOSORBIDE MONO 30MG TAB SR PO SCH (09:25)
[2018-07-06] MEDS: TAMSULOSIN HCL 0.4 MG CAP.ER.24H PO SCH (09:25)
[2018-07-06] MEDS: SODIUM CHLORIDE 0.9% 1000ML 1,000 ML IV SCH ×3 (09:26→21:57)
[2018-07-06] MEDS: MEMANTINE HCL 5 MG TABLET PO SCH ×2 (09:26→21:35)
[2018-07-06 11:00] VITALS: BP 132/70
[2018-07-06 16:30] VITALS: BP 121/61
[2018-07-06 20:00] VITALS: BP 96/75
[2018-07-06] MEDS: DONEPEZIL HCL 5 MG TAB PO SCH (21:35)
[2018-07-06] MEDS: ATORVASTATIN CALCIUM 10 MG TABLET PO SCH (21:35)
[2018-07-06] MEDS: RISPERIDONE 1 MG TABLET PO SCH (21:35)
[2018-07-07] VITALS: BP 107/47
[2018-07-07 04:00] VITALS: BP 115/59
[2018-07-07] MEDS: INSULIN LISPRO 100 UNIT/ML 3ML SQ SCH ×3 (05:16→16:30)
[2018-07-07] MEDS: MEROPENEM 1 GM VIAL IVP SCH ×2 (05:45→15:37)
[2018-07-07] MEDS: IPRATROPIUM/ALBUTEROL SULFATE 3 ML SOLUTION IH SCH ×2 (06:01→11:40)
[2018-07-07 08:00] VITALS: BP 126/58
[2018-07-07] MEDS: ISOSORBIDE MONO 30MG TAB SR PO SCH (08:15)
[2018-07-07] MEDS: ENOXAPARIN SODIUM 40 MG/0.4 ML SYRINGE SQ SCH (08:15)
[2018-07-07] MEDS: MEMANTINE HCL 5 MG TABLET PO SCH (08:15)
[2018-07-07] MEDS: TAMSULOSIN HCL 0.4 MG CAP.ER.24H PO SCH (08:15)
[2018-07-07] MEDS ORDERED: ERTA1I IV (11:41)
[2018-07-07 12:00] VITALS: BP 130/49
[2018-07-07] MEDS: SODIUM CHLORIDE 0.9% 1000ML 1,000 ML IV SCH (12:00)
[2018-07-07 15:52] VITALS: BP 108/53
== END 2018-07-07 18:18 | DRG 872 ==
LOC: EDH 08:25 → EDHIP 11:39 → OBSVTOIN 11:39 → 3CH 13:10 → 3AH 07-03 20:59
PROVIDERS: ADMIT Internal Medicine; ATTEND Internal Medicine
DX: A41.51 Sepsis due to Escherichia coli [E. coli] (principal); N10 Acute pyelonephritis; J44.0 Chronic obstructive pulmonary disease with (acute) lower respiratory infection; E44.0 Moderate protein-calorie malnutrition; J20.9 Acute bronchitis, unspecified; E11.9 Type 2 diabetes mellitus without complications; E78.5 Hyperlipidemia, unspecified; E83.42 Hypomagnesemia; E87.6 Hypokalemia; I10 Essential (primary) hypertension; I25.10 Atherosclerotic heart disease of native coronary artery without angina pectoris; N40.0 Benign prostatic hyperplasia without lower urinary tract symptoms; G30.9 Alzheimer's disease, unspecified; F02.80 Dementia in other diseases classified elsewhere, unspecified severity, without behavioral disturbance, psychotic disturbance, mood disturbance, and anxiety; M19.90 Unspecified osteoarthritis, unspecified site; Z95.1 Presence of aortocoronary bypass graft; Z68.23 Body mass index [BMI] 23.0-23.9, adult; Z86.73 Personal history of transient ischemic attack (TIA), and cerebral infarction without residual deficits; Z88.0 Allergy status to penicillin; Z90.49 Acquired absence of other specified parts of digestive tract; Z79.899 Other long term (current) drug therapy; Z79.84 Long term (current) use of oral hypoglycemic drugs
CPT/HCPCS: 36415; 71045; 74176; 80048; 80053; 80061; 81001; 82948; 83036; 83605; 83735; 84100; 85025; 85027; 85610; 85730; 87040; 87077; 87088; 87186; 87804; 87880; 92610; 93005; 94640; 94664; 97039; A4218; J0696; J1650; J2060; J2185; J3475; J7030

== ENCOUNTER 2018-12-15 01:29 | Inpatient (IN) | payer OTHER, MEDICARE | END 2018-12-19 18:45 | LOC: EDH 01:29 → 3BH 12-17 23:00 → EDHIP 03:34 → 2AH 04:52 | DX: A41.9 Sepsis, unspecified organism (principal); J18.9 Pneumonia, unspecified organism; G93.41 Metabolic encephalopathy; N39.0 Urinary tract infection, site not specified; E11.9 Type 2 diabetes mellitus without complications; I10 Essential (primary) hypertension ==